=== PATIENT | female | born 1995 | race African-American/Black ===

== ENCOUNTER 2018-07-25 13:43 | Emergency (ER) | payer OTHER ==
[~2018-07-25] VITALS: Ht 149.9 cm; Wt 49.9 kg
[2018-07-25 13:48] VITALS: Ht 149.9 cm; Wt 49.9 kg
[2018-07-25 15:39] VITALS: BP 119/78
== END 2018-07-25 15:39 | disposition home or self-care (01) ==
LOC: ED 13:43
DX: S60.512A Abrasion of left hand, initial encounter (principal); V49.9XXA Car occupant (driver) (passenger) injured in unspecified traffic accident, initial encounter; Y93.I9 Activity, other involving external motion; Y92.488 Other paved roadways as the place of occurrence of the external cause; Y99.8 Other external cause status

== ENCOUNTER 2018-07-30 10:51 | Emergency (ER) | payer OTHER ==
[~2018-07-30] VITALS: Ht 149.9 cm; Wt 47.3 kg
[2018-07-30 11:08] VITALS: Ht 149.9 cm; Wt 47.3 kg
[2018-07-30 12:16] VITALS: BP 118/70
== END 2018-07-30 11:08 | disposition home or self-care (01) ==
LOC: ED 10:51
DX: G44.209 Tension-type headache, unspecified, not intractable (principal); R42 Dizziness and giddiness; V49.9XXA Car occupant (driver) (passenger) injured in unspecified traffic accident, initial encounter; W22.11XA Striking against or struck by driver side automobile airbag, initial encounter; Y93.I9 Activity, other involving external motion; Y92.413 State road as the place of occurrence of the external cause; Y99.8 Other external cause status

== ENCOUNTER 2019-03-26 06:35 | Emergency (ER) | payer MEDICAID ==
[~2019-03-26] VITALS: Ht 149.9 cm; Wt 51.8 kg
[2019-03-26 06:38] VITALS: BP 115/78; Ht 149.9 cm; Wt 51.8 kg
== END 2019-03-26 07:09 | disposition home or self-care (01) ==
LOC: ED 06:35
DX: H65.93 Unspecified nonsuppurative otitis media, bilateral (principal)

== ENCOUNTER 2019-03-28 11:27 | Emergency (ER) | payer MEDICAID | END 2019-03-28 12:25 | disposition left against medical advice (07) | LOC: ED 11:27 | DX: Z53.21 Procedure and treatment not carried out due to patient leaving prior to being seen by health care provider (principal) ==

== ENCOUNTER 2019-04-11 05:32 | Emergency (ER) | payer MEDICAID ==
[~2019-04-11] VITALS: Ht 124.5 cm; Wt 52.2 kg
[2019-04-11 05:36] VITALS: Ht 124.5 cm; Wt 52.2 kg
[2019-04-11 06:05] VITALS: BP 99/73
== END 2019-04-11 06:05 | disposition home or self-care (01) ==
LOC: ED 05:32
DX: H65.90 Unspecified nonsuppurative otitis media, unspecified ear (principal); R42 Dizziness and giddiness

== ENCOUNTER 2019-08-28 05:09 | Emergency (ER) | payer MEDICAID ==
[~2019-08-28] VITALS: Ht 149.9 cm; Wt 52.2 kg
[2019-08-28 05:13] VITALS: Ht 149.9 cm; Wt 52.2 kg
[2019-08-28 07:08] VITALS: BP 108/72
== END 2019-08-28 06:15 | disposition home or self-care (01) ==
LOC: ED 05:09
DX: J30.9 Allergic rhinitis, unspecified (principal)

== ENCOUNTER 2019-08-29 03:59 | Emergency (ER) | payer MEDICAID ==
[~2019-08-29] VITALS: Ht 149.9 cm; Wt 56.2 kg
[2019-08-29 04:03] VITALS: Ht 149.9 cm; Wt 56.2 kg
[2019-08-29 04:17] VITALS: BP 111/69
== END 2019-08-29 04:17 | disposition home or self-care (01) ==
LOC: ED 03:59
DX: J32.9 Chronic sinusitis, unspecified (principal)

== ENCOUNTER 2019-12-23 05:28 | Emergency (ER) | payer MEDICAID ==
[~2019-12-23] VITALS: Ht 149.9 cm; Wt 55.0 kg
[2019-12-23 05:32] VITALS: Ht 149.9 cm; Wt 55.0 kg
[2019-12-23 06:38] VITALS: BP 121/58
== END 2019-12-23 06:38 | disposition home or self-care (01) ==
LOC: ED 05:28
DX: T78.49XA Other allergy, initial encounter (principal); X58.XXXA Exposure to other specified factors, initial encounter
CPT/HCPCS: J7512

== ENCOUNTER 2020-05-29 05:59 | Emergency (ER) | payer OTHER ==
[~2020-05-29] VITALS: Ht 149.9 cm; Wt 54.9 kg
[2020-05-29 06:07] VITALS: Ht 149.9 cm; Wt 54.9 kg
[2020-05-29 06:46] VITALS: BP 110/73
== END 2020-05-29 06:47 | disposition home or self-care (01) ==
LOC: ED 05:59
DX: S90.862A Insect bite (nonvenomous), left foot, initial encounter (principal); S90.861A Insect bite (nonvenomous), right foot, initial encounter; W57.XXXA Bitten or stung by nonvenomous insect and other nonvenomous arthropods, initial encounter; Y93.89 Activity, other specified; Y92.89 Other specified places as the place of occurrence of the external cause; Y99.8 Other external cause status

== ENCOUNTER 2020-08-12 04:57 | Emergency (ER) | payer OTHER ==
[~2020-08-12] VITALS: Ht 149.9 cm; Wt 54.5 kg
[2020-08-12 05:13] VITALS: Ht 149.9 cm; Wt 54.5 kg
[2020-08-12 05:42] VITALS: BP 117/67
== END 2020-08-12 05:42 | disposition home or self-care (01) ==
LOC: ED 04:57
DX: L03.011 Cellulitis of right finger (principal)